=== PATIENT | male | born 1975 | race African-American/Black ===

== ENCOUNTER 2018-03-26 01:55 | Emergency (ER) | payer SELFPAY ==
[2018-03-26 02:10] VITALS: BP 176/117; PULSE 89; RESP 20; TEMP 98.8
--- NOTE | 2018-03-26 02:58 | ED ---
Skin/Abscess/FB HPI - General Chief complaint: Skin/Abscess/Foreign Body Stated complaint: chest pain Time Seen by Provider: 03/26/18 02:10 Source: patient, RN notes reviewed, old records reviewed Mode of arrival: ambulatory Limitations: no limitations - History of Present Illness Initial comments: Patient is a 42 year old male presetns with R nipple pain for 3 days. Denies trauma to area. He reports R nipple and areola are swollen. Patient denies being bite or stung in the area byinsect. Mother has history of breast cancer. - Related Data Previous Rx's Medication Instructions Recorded Cephalexin [Keflex] 500 mg PO Q6HR #28 cap 03/26/18 Mupirocin [Mupirocin 2%] 1 applic TOPICAL TID #60 gm 03/26/18 Allergies Allergy/AdvReac Type Severity Reaction Status Date / Time Penicillins Allergy Unknown Verified 03/26/18 02:10 Childhood Review of Systems ROS Statement: Those systems with pertinent positive or pertinent negative responses have been documented in the HPI. ROS Other: All systems not noted in ROS Statement are negative. Past Medical History Past Medical History: Hypertension History of Any Multi-Drug Resistant Organisms: None Reported Past Surgical History: No Surgical Hx Reported Past Psychological History: No Psychological Hx Reported Smoking Status: Never smoker Past Alcohol Use History: Occasional Past Drug Use History: Marijuana General Exam - General Exam Comments Initial Comments: 42 year old obese male. Limitations: no limitations General appearance: alert, in no apparent distress Head exam: Present: atraumatic, normocephalic, normal inspection Eye exam: Present: normal appearance, PERRL, EOMI. Absent: scleral icterus, conjunctival injection, periorbital swelling ENT exam: Present: normal exam, mucous membranes moist Neck exam: Present: normal inspection. Absent: tenderness, meningismus, lymphadenopathy Respiratory exam: Present: normal lung sounds bilaterally. Absent: respiratory distress, wheezes, rales, rhonchi, stridor Cardiovascular Exam: Present: regular rate, normal rhythm, normal heart sounds. Absent: systolic murmur, diastolic murmur, rubs, gallop, clicks GI/Abdominal exam: Present: soft, normal bowel sounds. Absent: distended, tenderness, guarding, rebound, rigid Extremities exam: Present: normal inspection, full ROM, normal capillary refill. Absent: tenderness, pedal edema, joint swelling, calf tenderness Back exam: Present: normal inspection Neurological exam: Present: alert, oriented X3, CN II-XII intact Skin exam: Present: warm, dry, intact, normal color, erythema (enlarged and swollen R nipple. No drainage. tender to palpation. ). Absent: rash Course Vital Signs 03/26/18 02:08 Temperature 98.8 F Pulse Rate 89 Respiratory 20 Rate Blood Pressure 176/117 O2 Sat by Pulse 95 Oximetry Medical Decision Making - Medical Decision Making 42 year old male with R nipple pain, erythema, and swelling. Family history of breast cancer. Patient at this time will be treated for cellulitis, and DC with antibiotics and mupirocin cream. Discussed cool compress to alleviate swelling. Discussed if not better to follow up with PCP or breast surgeon. All questions answered. REturn parameters discussed. Disposition Clinical Impression: Nipple inflammation Disposition: HOME SELF-CARE Condition: Good Instructions: Cellulitis (ED) Additional Instructions: Patient advised follow-up with primary care physician. Return to the emergency department if any alarming signs or symptoms occur. Prescriptions: Cephalexin [Keflex] 500 mg PO Q6HR #28 cap Mupirocin [Mupirocin 2%] 1 applic TOPICAL TID #60 gm Is patient prescribed a controlled substance at d/c from ED?: No Referrals: None,Stated [Primary Care Provider] - 1-2 days Darby Andino MD [STAFF PHYSICIAN] - 1-2 days Time of Disposition: 02:52
== END 2018-03-26 03:04 | disposition home or self-care (01) ==
LOC: EC 01:55
DX: N61.0 Mastitis without abscess (principal); Z88.0 Allergy status to penicillin; Z80.3 Family history of malignant neoplasm of breast
CPT/HCPCS: 99285